=== PATIENT | female | born 1995 | race African-American/Black ===

== ENCOUNTER 2022-06-08 16:04 | Emergency (ER) | payer BC, OTHER ==
[~2022-06-08] VITALS: Ht 165.1 cm; Wt 64.0 kg
[2022-06-08 16:40] VITALS: BP 117/71
[2022-06-08] MEDS ORDERED: DexAMETHasone SOD PHOS 10MG/1ML VIAL INJ IM ONE (19:30)
[2022-06-08] MEDS ORDERED: KETOROLAC TROMETH 60MG/2ML VIAL IM ONE (19:30)
[2022-06-10] MEDS ORDERED: AZITTAB PO (14:14)
[2022-06-10] MEDS ORDERED: PROM1SOL4 PO (14:14)
[2022-06-10] MEDS ORDERED: BENZ1LOZ3 MT (14:14)
== END 2022-06-08 21:34 | disposition left against medical advice (07) ==
LOC: ER 16:04
DX: J06.9 Acute upper respiratory infection, unspecified (principal)
CPT/HCPCS: 71046